=== PATIENT | female | born 1970 | race American Indian/Alaskan Native ===

== ENCOUNTER 2018-11-21 13:44 | Emergency (ER) | payer SELFPAY ==
--- NOTE | 2018-11-21 13:54 | Emergency Department Report ---
ED ENT HPI - General Chief complaint: Dental/Oral Stated complaint: FACIAL SWELLING Time Seen by Provider: 11/21/18 13:49 Source: patient Mode of arrival: Ambulatory Limitations: No Limitations - History of Present Illness Initial comments: 49 y/o AAF with PMH of untreated HTN and chronic recurrent dental infections presents to ED c/o another episode of dental pain and possible infection. no fever or chills. no sweats. Has swelling to left upper oral region and tender to touch. No dysphasia or odynophagia. -: days(s) (2) Location: tooth # Severity: moderate Quality: dull, constant Consistency: constant Improves with: none Worsens with: eating, movement Context- Dental: history of dental caries, poor dental care Associated Symptoms: gum swelling. denies: pain with swallowing, sore throat, tinnitus, discharge from ear, rhinorrhea - Related Data Previous Rx's Medication Instructions Recorded Last Taken Type Amoxicillin [Amoxicillin TAB] 875 mg PO BID #20 tablet 11/21/18 Unknown Rx Chlorhexidine Mouthwash [Peridex] 15 ml MM BID #473 bottle 11/21/18 Unknown Rx Ketorolac [Toradol] 10 mg PO Q6H PRN #15 tablet 11/21/18 Unknown Rx Lidocaine Viscous 2% 15 ml MM Q4H #240 udc 11/21/18 Unknown Rx Lisinopril [Zestril TAB] 20 mg PO QDAY #30 tablet 11/21/18 Unknown Rx Allergies Allergy/AdvReac Type Severity Reaction Status Date / Time codeine Allergy Vomiting Verified 11/21/18 13:44 ED Dental HPI - General Chief complaint: Dental/Oral Stated complaint: FACIAL SWELLING Time Seen by Provider: 11/21/18 13:49 Source: patient Mode of arrival: Ambulatory Limitations: No Limitations - Related Data Previous Rx's Medication Instructions Recorded Last Taken Type Amoxicillin [Amoxicillin TAB] 875 mg PO BID #20 tablet 11/21/18 Unknown Rx Chlorhexidine Mouthwash [Peridex] 15 ml MM BID #473 bottle 11/21/18 Unknown Rx Ketorolac [Toradol] 10 mg PO Q6H PRN #15 tablet 11/21/18 Unknown Rx Lidocaine Viscous 2% 15 ml MM Q4H #240 udc 11/21/18 Unknown Rx Lisinopril [Zestril TAB] 20 mg PO QDAY #30 tablet 11/21/18 Unknown Rx Allergies Allergy/AdvReac Type Severity Reaction Status Date / Time codeine Allergy Vomiting Verified 11/21/18 13:44 ED Review of Systems ROS: Stated complaint: FACIAL SWELLING Other details as noted in HPI Constitutional: denies: chills, fever Eyes: denies: eye pain, eye discharge, vision change ENT: dental pain. denies: ear pain, throat pain Respiratory: denies: cough, shortness of breath, wheezing Cardiovascular: denies: chest pain, palpitations Endocrine: no symptoms reported Gastrointestinal: denies: abdominal pain, nausea, diarrhea Genitourinary: denies: urgency, dysuria, discharge Musculoskeletal: denies: back pain, joint swelling, arthralgia Skin: denies: rash, lesions Neurological: denies: headache, weakness, paresthesias Psychiatric: denies: anxiety, depression Hematological/Lymphatic: denies: easy bleeding, easy bruising ED Past Medical Hx - Past Medical History Previous Medical History?: No - Surgical History Past Surgical History?: No - Medications Home Medications: Home Medications Medication Instructions Recorded Confirmed Last Taken Type Amoxicillin [Amoxicillin TAB] 875 mg PO BID #20 tablet 11/21/18 Unknown Rx Chlorhexidine Mouthwash [Peridex] 15 ml MM BID #473 bottle 11/21/18 Unknown Rx Ketorolac [Toradol] 10 mg PO Q6H PRN #15 tablet 11/21/18 Unknown Rx Lidocaine Viscous 2% 15 ml MM Q4H #240 udc 11/21/18 Unknown Rx Lisinopril [Zestril TAB] 20 mg PO QDAY #30 tablet 11/21/18 Unknown Rx ED Physical Exam - General Limitations: No Limitations General appearance: alert, in no apparent distress - Head Head exam: Present: atraumatic, normocephalic - Expanded Head Exam Expanded 1 - Swelling region. Tender to touch - Eye Eye exam: Present: normal appearance - ENT ENT exam: Present: mucous membranes moist, other (swelling to left upper gingival region and tender with palpation . tongue and uvula midline. airway patent. no exudate. no bleeding) - Neck Neck exam: Present: normal inspection. Absent: lymphadenopathy - Respiratory Respiratory exam: Present: normal lung sounds bilaterally. Absent: respiratory distress - Cardiovascular Cardiovascular Exam: Present: regular rate, normal rhythm. Absent: systolic murmur, diastolic murmur, rubs, gallop - GI/Abdominal GI/Abdominal exam: Present: soft, normal bowel sounds - Extremities Exam Extremities exam: Present: normal inspection - Back Exam Back exam: Present: normal inspection - Neurological Exam Neurological exam: Present: alert, oriented X3 - Psychiatric Psychiatric exam: Present: normal affect, normal mood - Skin Skin exam: Present: warm, dry, intact, normal color. Absent: rash ED Medical Decision Making - Medical Decision Making bp 189/102 asymptomatic Critical care attestation.: If time is entered above; I have spent that time in minutes in the direct care of this critically ill patient, excluding procedure time. ED Disposition Clinical Impression: HTN (hypertension), Dentalgia, Dental infection, Infected dental caries Disposition: TO HOME OR SELFCARE Is pt being admited?: No Does the pt Need Aspirin: No Condition: Stable Instructions: Hypertension (ED), Toothache (ED), Dental Caries (ED), Dental Abscess (ED) Referrals: [facility] [Outside] - 3-5 Days [facility] [Provider Group] - 3-5 Days
[2018-11-21 13:55] VITALS: BP 189/91
== END 2018-11-21 14:20 | disposition home or self-care (01) ==
LOC: EDBD → ED 13:44
DX: K02.9 Dental caries, unspecified (principal); K06.8 Other specified disorders of gingiva and edentulous alveolar ridge; I10 Essential (primary) hypertension; Z88.4 Allergy status to anesthetic agent
CPT/HCPCS: 99282

== ENCOUNTER 2019-06-12 15:46 | Emergency (ER) | payer SELFPAY ==
[2019-06-12 15:58] VITALS: BP 164/84
--- NOTE | 2019-06-12 17:02 | Event Note ---
ED Screening Note Date of service: 06/12/19 Time: 17:00 ED Screening Note: Pt complains of right flank pain x 8 days +frequency denies hx of kidney stone 4/10 pain severity currently pain worsens with walking This initial assessment/diagnostic orders/clinical plan/treatment(s) is/are subject to change based on patients health status, clinical progression and re- assessment by fellow clinical providers in the ED. Further treatment and workup at subsequent clinical providers discretion. Patient/guardian urged not to elope from the ED as their condition may be serious if not clinically assessed and managed. Initial orders include: labs UA
[2019-06-12 17:51] LABS: Bilirubin,Urine NEG (Negative); Blood,Urine NEG (Negative); Color,Urine Yellow (Yellow); Mucus,Urine FEW /HPF; Protein,Urine <15 mg/dL mg/dL (Negative); Urobilinogen,Urine < 2.0 mg/dL (<2.0); WBC,Urine < 1.0 /HPF (0.0-6.0)
[2019-06-12 18:01] LABS: Hemoglobin 12.3 gm/dl (10.1-14.3); Mean Corpuscular Volume 81 fl (79-97); Red Blood Count 4.69 M/mm3 (3.65-5.03)
[2019-06-12 18:02] LABS: Basophils % (Auto) 0.8 % (0.0-1.8); Eosinophils # (Auto) 0.1 K/mm3 (0.0-0.4); Eosinophils % (Auto) 1.4 % (0.0-4.3); Lymphocytes # (Auto) 1.4 K/mm3 (1.2-5.4); Lymphocytes % (Auto) 35.7 % (13.4-35.0); Mean Corpuscular HGB Conc 32 % (30-34); Monocytes # (Auto) 0.3 K/mm3 (0.0-0.8); Monocytes % (Auto) 8.7 % (0.0-7.3); Platelet Count 181 K/mm3 (140-440); Red Cell Distribution Width 16.9 % (13.2-15.2)
[2019-06-12 18:24] LABS: Alanine Aminotransferase 8 units/L (7-56); Albumin 4.1 g/dL (3.9-5); BUN/Creatinine Ratio 12; Blood Urea Nitrogen 12 mg/dL (7-17); Calcium 9.3 mg/dL (8.4-10.2); Hemolysis Index 2
[2019-06-12] MEDS ORDERED: KETOROLAC 30 MG/1 ML INJ IM ONE (21:40)
[2019-06-12] MEDS ORDERED: predniSONE 20 MG TAB PO ONE (21:40)
--- NOTE | 2019-06-12 23:03 | Emergency Department Report ---
ED Back Pain/Injury HPI - General Chief Complaint: Abdominal Pain Stated Complaint: RT SIDE PAIN X 1 WEEK Time Seen by Provider: 06/12/19 16:59 Source: patient Limitations: No Limitations - History of Present Illness Initial Comments: Patient is a 49-year-old -Citizen Of [place] female with no past medical history apart from hypertension who presents to the ED with content of acute onset persistent nontraumatic low back pain for the last 1 week. 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 Patient also states that the pain has been persistent and gets worse with any physical activity or activity range of motion. Patient denies hematuria, dysuria, urinary frequency and urgency, abdominal pain, nausea, vomiting, diarrhea, dizziness, syncope, chest pain or shortness of breath, fall, traumatic injury, vaginal bleeding, numbness and tingling or weakness of lower extremities bilaterally. MD Complaint: back pain -: Sudden, week(s) (1) Similar Symptoms Previously: Yes Place: home Radiation: none Severity: moderate Severity scale (0 -10): 5 Quality: sharp, aching Consistency: constant Improves With: none Worsens With: movement, walking Context: while lifting, turning/twisting Associated Symptoms: denies other symptoms. denies: confusion, weakness, chest pain, numbness, difficulty walking, cough, difficulty urinating, diaphoresis, incontinence, fever/chills, constipation, headaches, abdominal pain, loss of petra etite, nausea/vomiting, rash, seizure, shortness of breath, syncope - Related Data Previous Rx's Medication Instructions Recorded Last Taken Type Amoxicillin [Amoxicillin TAB] 875 mg PO BID #20 tablet 11/21/18 Unknown Rx Chlorhexidine Mouthwash [Peridex] 15 ml MM BID #473 bottle 11/21/18 Unknown Rx Ketorolac [Toradol] 10 mg PO Q6H PRN #15 tablet 11/21/18 Unknown Rx Lidocaine Viscous 2% 15 ml MM Q4H #240 udc 11/21/18 Unknown Rx lisinopriL [Zestril TAB] 20 mg PO QDAY #30 tablet 11/21/18 Unknown Rx Naproxen 500 mg PO Q12H PRN #24 tablet 06/12/19 Unknown Rx predniSONE [Deltasone] 40 mg PO QDAY #10 tab 06/12/19 Unknown Rx tiZANidine [Zanaflex 4mg TAB] 4 mg PO Q8H PRN #21 tablet 06/12/19 Unknown Rx traMADoL [Ultram] 50 mg PO Q6HR PRN #12 tablet 06/12/19 Unknown Rx Allergies Allergy/AdvReac Type Severity Reaction Status Date / Time codeine Allergy Vomiting Verified 11/21/18 13:44 ED Review of Systems ROS: Stated complaint: RT SIDE PAIN X 1 WEEK Other details as noted in HPI Constitutional: denies: chills, fever Eyes: denies: eye pain, eye discharge, vision change ENT: denies: ear pain, throat pain Respiratory: denies: cough, shortness of breath, wheezing Cardiovascular: denies: chest pain, palpitations Endocrine: no symptoms reported Gastrointestinal: denies: abdominal pain, nausea, diarrhea Genitourinary: denies: urgency, dysuria, discharge Musculoskeletal: back pain (lower back), arthralgia, myalgia. denies: joint swelling Skin: denies: rash, lesions Neurological: denies: headache, weakness, paresthesias Psychiatric: denies: anxiety, depression Hematological/Lymphatic: denies: easy bleeding, easy bruising ED Past Medical Hx - Past Medical History Previous Medical History?: Yes Hx Hypertension: Yes (noncompliant with meds) - Surgical History Past Surgical History?: No - Social History Smoking Status: Never Smoker Substance Use Type: None - Medications Home Medications: Home Medications Medication Instructions Recorded Confirmed Last Taken Type Amoxicillin [Amoxicillin TAB] 875 mg PO BID #20 tablet 11/21/18 Unknown Rx Chlorhexidine Mouthwash [Peridex] 15 ml MM BID #473 bottle 11/21/18 Unknown Rx Ketorolac [Toradol] 10 mg PO Q6H PRN #15 tablet 11/21/18 Unknown Rx Lidocaine Viscous 2% 15 ml MM Q4H #240 udc 11/21/18 Unknown Rx lisinopriL [Zestril TAB] 20 mg PO QDAY #30 tablet 11/21/18 Unknown Rx Naproxen 500 mg PO Q12H PRN #24 tablet 06/12/19 Unknown Rx predniSONE [Deltasone] 40 mg PO QDAY #10 tab 06/12/19 Unknown Rx tiZANidine [Zanaflex 4mg TAB] 4 mg PO Q8H PRN #21 tablet 06/12/19 Unknown Rx traMADoL [Ultram] 50 mg PO Q6HR PRN #12 tablet 06/12/19 Unknown Rx ED Physical Exam - General Limitations: No Limitations General appearance: alert, in no apparent distress - Head Head exam: Present: atraumatic, normocephalic, normal inspection - Eye Eye exam: Present: normal appearance, PERRL, EOMI Pupils: Present: normal accommodation - ENT ENT exam: Present: normal exam, normal orophraynx, mucous membranes moist, TM's normal bilaterally, normal external ear exam - Neck Neck exam: Present: normal inspection, full ROM. Absent: tenderness - Respiratory Respiratory exam: Present: normal lung sounds bilaterally. Absent: respiratory distress, wheezes, rales, rhonchi, chest wall tenderness, accessory muscle use, decreased breath sounds, prolonged expiratory - Cardiovascular Cardiovascular Exam: Present: regular rate, normal rhythm, normal heart sounds. Absent: systolic murmur, diastolic murmur, rubs, gallop - GI/Abdominal GI/Abdominal exam: Present: soft, normal bowel sounds. Absent: tenderness, guarding, rebound, hyperactive bowel sounds, hypoactive bowel sounds, organomegaly - Extremities Exam Extremities exam: Present: normal inspection, full ROM, normal capillary refill - Back Exam Back exam: Present: normal inspection, full ROM, tenderness (palpable lumbosacral paraspinal musculoskeletal tenderness), muscle spasm, paraspinal tenderness - Neurological Exam Neurological exam: Present: alert, oriented X3, CN II-XII intact, normal gait, reflexes normal - Psychiatric Psychiatric exam: Present: normal affect, normal mood - Skin Skin exam: Present: warm, dry, intact, normal color. Absent: rash ED Course Vital Signs 06/12/19 06/12/19 15:53 21:54 Temperature 98.9 F Pulse Rate 73 Respiratory 20 16 Rate Blood Pressure 164/84 O2 Sat by Pulse 100 Oximetry ED Medical Decision Making - Lab Data Result diagrams: 06/12/19 17:44 06/12/19 17:44 - Medical Decision Making This is a 49-year-old female who presented to the ED with acute onset persistent nontraumatic low back pain for 1 week. In the ED, patient is alert and oriented 3 and is not in distress. Lab test results were reviewed and are nonactionable. Patient was treated for pain in the ED and on reevaluation, patient's pain is well-controlled with medications. Based on the physical exam findings, patient's pain is likely musculoskeletal in origin given the patient's initial workup lifting. Patient was discharged home on pain medications and advised to follow-up with her primary care physician in 7-10 days for reevaluation or return to the ED immediately if symptoms get worse. - Differential Diagnosis muscle spasm; muscle strain; Kidney stones; UTI Critical care attestation.: If time is entered above; I have spent that time in minutes in the direct care of this critically ill patient, excluding procedure time. ED Disposition Clinical Impression: Spasm of muscle of lower back, Strain of muscle, fascia and tendon of lower back, initial encounter Acute low back pain Qualifiers: Back pain laterality: unspecified Sciatica presence: without sciatica Qualified Code(s): M54.5 - Low back pain Disposition: TO HOME OR SELFCARE Is pt being admited?: No Does the pt Need Aspirin: No Condition: Stable Instructions: Abdominal Pain (ED) Additional Instructions: Take medications with food, drink plenty of fluids and follow-up with your primary care physician in 7-10 days for reevaluation. Return to the ED immedia tely if symptoms get worse. Prescriptions: predniSONE [Deltasone] 40 mg PO QDAY #10 tab Naproxen 500 mg PO Q12H PRN #24 tablet PRN Reason: Pain , Severe (7-10) traMADoL [Ultram] 50 mg PO Q6HR PRN #12 tablet PRN Reason: Pain tiZANidine [Zanaflex 4mg TAB] 4 mg PO Q8H PRN #21 tablet PRN Reason: Muscle Spasm Referrals: LUKAS NUNN MD [Staff Physician] - 7-10 days Time of Disposition: 23:00 Print Language: SAMI
== END 2019-06-12 23:29 | disposition home or self-care (01) ==
LOC: ED 15:46
DX: S39.012A Strain of muscle, fascia and tendon of lower back, initial encounter (principal); M62.830 Muscle spasm of back; I10 Essential (primary) hypertension; Z88.5 Allergy status to narcotic agent; X50.0XXA Overexertion from strenuous movement or load, initial encounter; Y93.89 Activity, other specified; Y92.69 Other specified industrial and construction area as the place of occurrence of the external cause; Y99.8 Other external cause status
CPT/HCPCS: 36415; 80053; 81001; 85025; 96372; 99283; J1885; J7512

== ENCOUNTER 2020-07-28 18:34 | Emergency (ER) | payer SELFPAY ==
[2020-07-28 20:08] VITALS: BP 182/81
--- NOTE | 2020-07-28 20:13 | Emergency Department Report ---
Stated Complaint: RT ARM PAIN - HPI History of Present Illness: 50-year-old morbid obese -[place] female presents to the emergency room complaining of right arm pain that is been going on for greater than 1 month. 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 Patient denies any weakness. She states that she has taken Tylenol. She has not seen anyone for this complaint. Patient denies any injury no falls. Patient reports no past medical history takes no medications on a daily basis and has no known drug allergies. - Exam Vital Signs: Vital Signs 07/28/20 20:04 Temperature 98.6 F Pulse Rate 74 Respiratory 18 Rate Blood Pressure 182/81 O2 Sat by Pulse 100 Oximetry Physical Exam: Alert and oriented x3 no acute distress nontoxic in appearance morbid obese Right arm full range of motion no swelling appreciated no erythematous. Patient is ambulatory without difficulties. MSE screening note: Focused history and physical exam performed. Due to findings the following was ordered: 50-year-old morbid obese -[place] female presents to the emergency room complaining of right arm pain that is been going on for greater than 1 month. 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 Patient denies any weakness. She states that she has taken Tylenol. She has not seen anyone for this complaint. Patient denies any injury no falls. Patient reports no past medical history takes no medications on a daily basis and has no known drug allergies. Patient has been evaluated by this provider. Patient has stable vital signs did discuss with her that her blood pressure is mildly elevated and that she needs to follow-up with a primary care provider. Also discussed with patient that this is most likely of right arm strain secondary to lifting heavy objects such as kids constantly throughout the day. I did discuss with patient that she can take ibuprofen or naproxen for pain management. Discussed the patient sometimes a hot shower or cool compress would help to. Patient seemed to appreciate advice and just states that she will follow-up with her primary care provider. ED Disposition for MSE Disposition: Z-07 MED SCREENING EXAM-LEFT Is pt being admited?: No Does the pt Need Aspirin: No Condition: Stable Instructions: Muscle Strain Additional Instructions: Recommend to take ibuprofen or naproxen for pain management. Can try [id number] muscle analgesic such as Aspercreme. Referrals: [facility] [Provider Group] - 3-5 Days
== END 2020-07-28 20:31 | disposition left against medical advice (07) ==
LOC: ED 18:34
DX: M79.601 Pain in right arm (principal); Z53.21 Procedure and treatment not carried out due to patient leaving prior to being seen by health care provider
CPT/HCPCS: 99282